=== PATIENT | female | born 1965 | race Caucasian/White ===

== ENCOUNTER 2022-04-30 20:10 | Emergency (ER) | payer BC ==
[~2022-04-30] VITALS: Ht 162.6 cm; Wt 113.4 kg
[2022-04-30 20:22] VITALS: BP_SYST 180
--- NOTE | 2022-04-30 20:34 | NUR ---
Patient to ER bed 04 to gown for evaluation. Side rails up. Report given to Magdalena ORELLANA.
--- NOTE | 2022-04-30 20:40 | NUR ---
Patient presents to ED from home with c/o headache. Patient reports pain 6/10. Patient A/Ox4, ambulatory, resp even and unlabored. Patient has hx of HTN, asthma. Patient connected to monitor. ER MD Padron notified.
--- NOTE | 2022-04-30 20:44 | NUR ---
HERMILA HARP Kwaw at bedside evaluating patient.
[2022-04-30] MEDS ORDERED: hydrALAZINE HCL 20 MG/ML VIAL IVP ONE (21:00)
--- NOTE | 2022-04-30 21:04 | NUR ---
lab at bedside.
[2022-04-30 21:14] LABS: BASOPHILS # (AUTO) 0.2 K/uL (0.0-0.2); BASOPHILS % (AUTO) 2.9 % (0.0-2.0); EOSINOPHILS # (AUTO) 0.2 K/uL (0.0-0.4); EOSINOPHILS % (AUTO) 2.4 % (0.0-4.0); HEMATOCRIT 41.6 % (36-48); HEMOGLOBIN 13.8 g/dL (12.0-16.0); LYMPHOCYTES # (AUTO) 2.2 K/uL (1.0-5.5); LYMPHOCYTES % (AUTO) 29.4 % (20.5-51.5); MEAN CORPUSCULAR HEMOGLOBIN 32 pg (27-31); MEAN CORPUSCULAR HGB CONC 33 % (32-36); MEAN CORPUSCULAR VOLUME 95 fL (79.0-98.0); MONOCYTES # (AUTO) 0.6 K/uL (0.0-1.0); MONOCYTES % (AUTO) 7.9 % (1.7-9.3); NEUTROPHILS # (AUTO) 4.2 K/uL (1.8-7.7); NEUTROPHILS % (AUTO) 57.4 % (40.0-70.0); PLATELET COUNT (AUTO) 235 K/uL (130-430); RED BLOOD CELL COUNT(AUTO) 4.37 MIL/uL (4.2-6.2); RED CELL DISTRIBUTION WIDTH 14.1 % (9.0-15.0); WHITE BLOOD COUNT (AUTO) 7.4 K/uL (4.8-10.8)
[2022-04-30 21:26] LABS: ANION GAP 6 (5-15); CALCIUM 8.6 mg/dL (8.4-11.0); CHLORIDE 103 mmol/L (98-107); CREATININE 1.29 mg/dL (0.55-1.30); GLUCOSE 375 mg/dL (70-99); POTASSIUM 4.5 mmol/L (3.5-5.1); UREA NITROGEN, BLOOD 16 mg/dL (8-21)
[2022-04-30 21:33] LABS: ALANINE AMINOTRANSFERASE 117 U/L (12-78); ALBUMIN 3.3 g/dL (3.4-4.8); ASPARTATE AMINOTRANSFERASE 62 U/L (10-37); TOTAL BILIRUBIN 0.4 mg/dL (0.0-1.0)
[2022-04-30 21:34] LABS: GFR AFRICAN AMERICAN 55 mL/min (>90)
--- NOTE | 2022-04-30 22:00 | NUR ---
Patient resting in bed with side rails raised. Patient's daughter at bedside. Nad noted at this time.
[2022-04-30] MEDS ORDERED: LABETALOL 100 MG/ 20ML VIAL IVP ONE (22:15)
[2022-04-30] MEDS ORDERED: AMLO5TAB4 PO (22:56)
[2022-04-30] MEDS ORDERED: TRIA1CAP88 PO (22:56)
[2022-04-30 23:02] VITALS: BP_SYST 136
--- NOTE | 2022-04-30 23:02 | NUR ---
Patient given written and verbal discharge instructions and verbalizes understanding. ER MD discussed with patient the results and treatment provided. Patient in stable condition. ID arm band removed. IV catheter removed intact and dressing applied, no active bleeding. Rx of AMLODIPINE, TRIAMTERENE-hctz given. Patient educated on pain management and to follow up with PMD. Pain Scale 0/10. Opportunity for questions provided and answered. Medication side effect fact sheet provided. Patient A/Ox4, VSS, ambulatory, resp even and unlabored. Patient accompanied by daughter and in stable condition upon discharge.
== END 2022-04-30 23:02 | disposition home or self-care (01) ==
LOC: SED 20:10
DX: I10 Essential (primary) hypertension (principal); R51.9 Headache, unspecified; J45.909 Unspecified asthma, uncomplicated; E11.9 Type 2 diabetes mellitus without complications; Z88.8 Allergy status to other drugs, medicaments and biological substances; Z79.899 Other long term (current) drug therapy
CPT/HCPCS: 99285; 96374; 96375; 80053; 85025; 84484; 36415; 93005; J0360; J3490